=== PATIENT | female | born 1985 | race Caucasian/White ===

== ENCOUNTER → 2017-09-16 | Outpatient (CLI) | payer BC, OTHER | LOC: M ONCR 14:29 | DX: D35.2 Benign neoplasm of pituitary gland (principal) | CPT/HCPCS: G0463 ==

== ENCOUNTER 2017-10-02 13:54 | Outpatient (RCR) | payer BC, OTHER ==
[2017-10-02 15:06] LABS: HEMATOCRIT 39.2 % (36.0-47.0); HEMOGLOBIN 12.7 g/dl (12.0-15.5); MEAN CORPUSCULAR HEMOGLOBIN 28.2 pg (27.0-33.0); MEAN CORPUSCULAR HGB CONC 32.4 g/dl (32.0-36.5); MEAN CORPUSCULAR VOLUME 87.1 fl (80.0-96.0); PLATELET COUNT, AUTOMATED 233 10^3/uL (150-450); RED CELL DISTRIBUTION WIDTH 14.3 % (11.5-14.5); WHITE BLOOD COUNT 7.1 10^3/uL (4.0-10.0)
== END 2017-10-10 ==
LOC: M ONCR 13:54
DX: C75.1 Malignant neoplasm of pituitary gland (principal); J45.909 Unspecified asthma, uncomplicated; Z98.890 Other specified postprocedural states; Z88.0 Allergy status to penicillin; Z88.5 Allergy status to narcotic agent; Z88.8 Allergy status to other drugs, medicaments and biological substances
CPT/HCPCS: 77334

== ENCOUNTER 2017-10-15 09:32 | Outpatient (RCR) | payer BC, OTHER | END 2017-11-09 | LOC: M ONCR 10-16 09:32 | DX: C75.1 Malignant neoplasm of pituitary gland (principal) | CPT/HCPCS: 77300 ==

== ENCOUNTER 2017-11-26 12:55 | Outpatient (RCR) | payer BC, OTHER ==
--- NOTE | 2017-11-11 11:31 | RADONC ---
RADIATION ONCOLOGY PROGRESS NOTE: DATE: 11/11/2017 CHART NUMBER: [id number] PROGRESS NOTE: Ms. Lebron is presently at a dose of 2700 cGy to her pituitary and is tolerating treatments quite well at this point with no complaints related to her radiation therapy. She is having no increased neurological problems or other issues. REVIEW OF SYSTEMS: The patient's review of systems is noncontributory. Denies nausea, vomiting, fevers, chills, night sweats, diplopia, headaches, anxiety or depression, anorexia, weight loss, visual disturbances, chest pain, urinary or bowel difficulties, bone pain, or neurological problems. PHYSICAL EXAMINATION: The patient's skin is in good condition with no evidence of moist or dry desquamation. The remainder of her physical exam remains unchanged. Ms. Lebron is tolerating treatments quite well and radiation will continue as scheduled.
--- NOTE | 2017-11-20 07:41 | RADONC ---
RADIATION ONCOLOGY PROGRESS NOTE DATE: 11/17/2017 CHART #: [id number] Ms. Lebron is thus far at a dose of 3240 cGy to her pituitary and was last treated on 11/14/2017. The patient did not show up for treatment today. As of Friday, she had been tolerating her treatments quite well with no complaints related to her radiation therapy. REVIEW OF SYSTEMS: Her review of systems at that time was noncontributory. She denied standard review of systems. PHYSICAL EXAMINATION: The patient's skin on Friday was in good condition with no evidence of radiation change present. ASSESSMENT: As of Friday, the patient had been tolerating treatments quite well. Radiation is scheduled to resume tomorrow.
--- NOTE | 2017-11-25 10:53 | RADONC ---
RADIATION ONCOLOGY PROGRESS NOTE DATE: 11/24/2017 CHART NUMBER: [id number] Ms. Lebron is presently a dose of 4140 cGy to her pituitary and is tolerating treatments quite well at this point with no complaints related to her radiation therapy. She is having no headaches or other problems. The patient's review of systems is noncontributory. She denies nausea, vomiting, fevers, chills, night sweats, diplopia, headaches, anxiety or depression, anorexia, weight loss, visual disturbances, chest pain, urinary or bowel difficulties, bone pain, or neurological problems. PHYSICAL EXAMINATION: The patient's skin is in good condition with no evidence of moist or dry desquamation. The remainder of her physical exam remains unchanged. Ms. Lebron is tolerating treatments quite well and radiation will continue as scheduled.
--- NOTE | 2017-11-27 15:53 | RADONC ---
RADIATION ONCOLOGY TREATMENT SUMMARY DATE: 11/26/2017 CHART NUMBER: [id number] DIAGNOSIS: Pituitary adenoma. ECOG PERFORMANCE STATUS: 0. TREATMENT SUMMARY: Ms. Lebron is a very pleasant 32-year-old white female with the diagnosis of a progressive pituitary adenoma who presented to me for discussion of definitive external beam radiation therapy in attempt to achieve local control. We treated the patient to her pituitary for a dose of 4500 cGy delivered in 25 fractions of 180 cGy each over 37 elapsed days from 10/20/2017 to 11/26/2017. The patient was treated on the linear accelerator utilizing a 6 MV photon beam via IMRT/IGRT. Ms. Lebron tolerated her treatments quite well with no difficulties related to her radiation therapy. She was able complete therapy as prescribed without interruption. I have scheduled the patient to see us once again in followup in 1 month. She will also continue to be followed by her other physicians as well. Thank you for allowing us to participate in the care of this very pleasant woman. If I could be of any further assistance or provide you with any information, please free to contact me anytime. cc: MD Laci Saldana MD [facility]
== END 2017-12-10 ==
LOC: M ONCR 12:55
PROVIDERS: ATTEND Radiology Radiation Oncology
DX: C75.1 Malignant neoplasm of pituitary gland (principal)

== ENCOUNTER → 2018-01-07 | Outpatient (CLI) | payer BC, OTHER | LOC: M ONCR 15:27 | DX: C75.1 Malignant neoplasm of pituitary gland (principal) | CPT/HCPCS: G0463 ==

== ENCOUNTER → 2018-03-30 | Outpatient (CLI) | payer BC, OTHER | LOC: M SLEEP HO 12:28 | PROVIDERS: ATTEND Internal Medicine Pulmonary Disease | DX: G47.30 Sleep apnea, unspecified (principal) ==

== ENCOUNTER → 2018-05-08 | Outpatient (CLI) | payer BC, OTHER ==
--- NOTE | 2018-05-15 18:46 | SLEEPCENT ---
DATE OF PROCEDURE: 05/08/2018 REFERRING PROVIDER: MARYLOU Millard INTERPRETATION: Nocturnal polysomnography was performed for the determination of pressure therapy in this patient with at least moderate obstructive sleep apnea with associated desaturations to the low 80's. She had a respiratory event index of 18.5 and an oxygen saturation rona of 80% on a home sleep test. She had associated sleep apnea syndrome symptoms of excessive day-time sleepiness and had snoring and nonrestorative sleep. A total of 8 hours and 21 minutes of data was reviewed for the entire titration with 423 minutes of sleep identified. Sleep latency was prolonged at 69.5 minutes. Rapid eye movement (REM) latency was prolonged at 172 minutes. All stages of sleep were observed. Sleep efficiency was decreased at 85.2%. EKG showed sinus bradycardia with an average heart rate of 56 beats per minute. Speeding and slowing were noted surrounding some respiratory events. No epileptiform discharge observed. The patient had been fit with a ResMed soft edge nasal mask of standard size, 4 cm of water pressure was applied to the circuit and then the lights were dimmed. Continuous positive airway pressure (CPAP) begun at 4 cm of water pressure was taken to a high of 9 cm of water pressure which appeared to be optimal. On that pressure, her AHI was 0 and her respiratory arousal index (SHERWOOD) was 1.3. Oxygen saturation rona was 90%. No significant periodic limb movement. Supine REM sleep was seen on this pressure with a reasonably good wave form. IMPRESSION: 1. Obstructive sleep apnea, at least moderate, reasonably palliated on CPAP at 9 cm of water pressure including supine REM sleep. RECOMMENDATIONS: Recommend continuation of CPAP therapy at the above pressure via a standard size ResMed soft edge nasal mask or mask of her preference. Clinical correlation will be necessary to ensure eradication of symptoms. ROSASD
== END ==
LOC: M SLEEP 19:37
PROVIDERS: ATTEND Internal Medicine Pulmonary Disease
DX: G47.33 Obstructive sleep apnea (adult) (pediatric) (principal)